=== PATIENT | male | born 2000 | race Asian ===

== ENCOUNTER 2019-06-08 10:08 | Inpatient (IN) | payer OTHER ==
[~2019-06-08] VITALS: Ht 182.9 cm; Wt 64.1 kg
[~2019-06-08 10:08] MED LIST: ALBU90AE13 INH
[2019-06-08 10:14] VITALS: BP 118/69; BP 147/76; TEMP 98.2
[2019-06-08 11:34] LABS: PLATELET COUNT 226 K/uL (142-355)
[2019-06-08 11:45] LABS: POTASSIUM 3.5 mmol/L (3.6-5.2)
[2019-06-08 12:12] VITALS: BP 127/78
[2019-06-08 13:00] VITALS: BP 129/81
[2019-06-08 14:35] VITALS: BP 135/80; TEMP 97.9; Ht 182.9 cm; Wt 64.1 kg
[2019-06-08 16:00] VITALS: BP 124/70; TEMP 98.4
[2019-06-08 20:00] VITALS: BP 128/78; TEMP 98.2
[2019-06-09] VITALS: BP 111/78; TEMP 98.1
[2019-06-09 04:00] VITALS: BP 116/61; TEMP 98.3
[2019-06-09 06:11] LABS: PLATELET COUNT 285 K/uL (142-355)
[2019-06-09 06:53] LABS: POTASSIUM 4.8 mmol/L (3.6-5.2)
[2019-06-09 08:00] VITALS: BP 115/82; TEMP 98.2
[2019-06-09 12:00] VITALS: BP 119/67; TEMP 98.1
== END 2019-06-10 00:07 | disposition home or self-care (01) | DRG 189 ==
LOC: ED 10:08 → MED/SURG 12:35 → UNDODEPER 15:43 → MED/SURG 06-10 00:07
PROVIDERS: Internal Medicine; ADMIT Emergency Medicine
DX: J96.01 Acute respiratory failure with hypoxia (principal); J18.8 Other pneumonia, unspecified organism; J45.901 Unspecified asthma with (acute) exacerbation
CPT/HCPCS: 36415; 36600; 80053; 82805; 83735; 85027; 94640; 94664; 94760; 96365; 96366; 96375; 99284; J0696; J1650; J2930; J3475

== ENCOUNTER 2022-04-12 22:22 | Emergency (ER) | payer OTHER ==
[~2022-04-12] VITALS: Ht 182.9 cm; Wt 64.0 kg
[2022-04-12 23:23] LABS: PLATELET COUNT 197 K/uL (142-355)
[2022-04-13 00:05] VITALS: BP 115/64; TEMP 100
== END 2022-04-13 00:05 | disposition home or self-care (01) ==
LOC: ED 22:22
PROVIDERS: Family Medicine
DX: J10.1 Influenza due to other identified influenza virus with other respiratory manifestations (principal); J45.998 Other asthma
CPT/HCPCS: 36415; 85027; 87502; 94664; 99283